=== PATIENT | female | born 1970 | race Caucasian/White ===

== ENCOUNTER → 2017-10-30 | Outpatient (CLI) | payer BC ==
[~2017-10-30] MED LIST: BIOTPOW17 PO; CLC100 PO; CLTP PO; CYCL5TAB28 PO; ERGO1CAP35 PO; FLNCV PO; LVXUNK PO; OXYC10SO
== END | disposition home or self-care (01) ==
LOC: C.RDSM 08:06
PROVIDERS: ATTEND Physical Medicine & Rehabilitation Sports Medicine
DX: M77.12 Lateral epicondylitis, left elbow (principal); M77.02 Medial epicondylitis, left elbow

== ENCOUNTER 2017-12-21 08:24 | Emergency (ER) | payer BC ==
[~2017-12-21] VITALS: Ht 160 cm; Wt 106.0 kg
[2017-12-21 08:26] VITALS: TEMP 36.7; Ht 160 cm; Wt 106.0 kg
[2017-12-21 08:55] VITALS: O2SAT 97
[2017-12-21 09:06] LABS: BASO % 0.1 %; BASO ABS # 0.02 K/uL (0-0.2); EOS % 1.2 %; EOS ABS # 0.17 K/uL (0-0.5); HEMATOCRIT 35.6 % (37-47); HEMOGLOBIN 11.4 g/dL (12.0-16.0); IG# 0.03 K/uL (0.00-0.02); LYMPH % 13.1 %; MEAN CELL VOLUME 86.2 fL (80-100); MEAN CORPUSCULAR HEMOGLOBIN 27.6 pg (25-34); MEAN PLATELET VOLUME 9.5 fL (7.4-10.4); MONO % 9.6 %; MONO ABS # 1.32 K/uL (0.11-0.59); NEUT % 75.8 %; NEUT ABS # 10.35 K/uL (1.4-6.5); PLATELET COUNT 371 K/uL (130-400); RED CELL DISTRIBUTION WIDTH CV 15.2 % (11.5-14.5); RED CELL DISTRIBUTION WIDTH SD 47.9 fL (36.4-46.3); WHITE BLOOD COUNT 13.69 K/uL (4.8-10.8)
[2017-12-21 09:11] LABS: PTT PATIENT 26.8 SECONDS (21.0-31.0)
[2017-12-21] MEDS ORDERED: SODIUM CHLORIDE 0.9% 1000ML 1,000 ML IV STA (09:15)
[2017-12-21] MEDS ORDERED: PEDICHW50 PO (09:27)
[2017-12-21] MEDS ORDERED: FERR142T PO (09:27)
[2017-12-21] MEDS ORDERED: ZINC1CAP PO (09:27)
[2017-12-21] MEDS ORDERED: LEVO175T PO (09:27)
[2017-12-21] MEDS ORDERED: ERGO500037 PO (09:27)
--- NOTE | 2017-12-21 09:28 | EMERGENCY ROOM VISIT NOTE ---
History First contact with patient: 08:34 Chief Complaint: CHEST PAIN Stated Complaint: CHEST PAIN, LIGHT HEADED, TROUBLE BREATHING Nursing Triage Summary: upper mid chest pain started last [id number] History of Present Illness The patient is a 47 year old female who presents to the Emergency Room with complaints of chest pain. The patient states she is also experiencing some mild lightheadedness associated with her pain. She denies any dyspnea, but states she was really focusing on her breathing last night, because she was concerned she might be short of breath. The symptoms began at rest, and do not increase with exertion. She states she began experiencing the chest discomfort at approximately 2300 last night, about 2 hours after eating nachos for dinner. She states the symptoms remind her of reflux she experienced after eating long [employer] while with her daughter several years ago. She does not have a history of reflux, GERD, gastritis, or associated symptoms. She denies any abdominal pain. She describes the sensation in her chest as a pressure/burning and states it is in the center of her chest. She rates it 7/10 last night and a 3/10 today. It does worsen with palpation. She denies family or personal history of heart attacks, hypertension, hyperlipidemia. She does report intermittent, occasional leg swelling for the past several months, but denies anything recent associated with this chest discomfort. She denies any overly stressful events in her life or at work right now. She denies history of anxiety. She states she was lifting heavy chairs and tables yesterday out of a box truck, several hours prior to onset of the pain. She denies recent travel. She denies history of blood clots. No palpitations, nausea, vomiting, diarrhea, recent illness, cough, constipation, URI symptoms, congestion, or other concerning symptoms. Review of Systems A complete 10 point review of systems was reviewed with the patient with pertinent positives and negatives as per history of present illness. All else were negative. Past Medical/Surgical History Hypothyroidism Family History CVA in paternal grandmother in her 80s. Valvular heart disease in her mother. Social History Smoking Status: Never Smoker Smokeless Tobacco Use: No Alcohol Use: none Drug Use: none Marital Status: Housing Status: lives with family Occupation Status: employed Current/Historical Medications Scheduled Ergocalciferol (Vitamin D 33875 Unit), 50,000 UNIT PO M,T,W,T,F Ferrous Sulfate (Slow Fe), Unknown Dose PO DAILY Levothyroxine Sodium (Synthroid), 175 MCG PO QAM Pediatric Multiple Vitamin W/ (Flintstones Chewable), 1 TAB PO QAM Zinc Sulfate (Zinc Sulfate), Unknown Dose PO DAILY Physical Exam Vital Signs Date Time Temp Pulse Resp B/P (MAP) Pulse Ox O2 Delivery O2 Flow Rate FiO2 12/21/17 09:50 64 16 172/64 99 Room Air 12/21/17 08:55 69 16 143/83 97 Room Air 12/21/17 08:55 97 Room Air 12/21/17 08:43 70 12/21/17 08:26 36.7 81 18 147/85 99 Room Air Physical Exam VITALS: Vitals are noted on the nurse's note and reviewed by myself. Vital signs stable. GENERAL: This is a 47-year-old white female, in no acute distress, nondiaphoretic, well-developed well-nourished. SKIN: The skin was without rashes, erythema, edema, or bruising. There is no tenting of the skin. Capillary reflex less than 2 seconds. HEAD: Normocephalic atraumatic. EARS: External auditory canals clear, tympanic membranes pearly charles without erythema or effusion bilaterally. EYES: Pupils equal round and reactive to light and accommodation. Conjunctivae without injection, sclerae without icterus. Extraocular movements intact. NOSE: Patent, turbinates without inflammation or discharge. No sinus tenderness. MOUTH: Mucous membranes moist. Tonsils are not enlarged. Pharynx without erythema or exudate. Uvula midline. Airway patent. Tongue does not deviate. NECK: Supple without nuchal rigidity. No lymphadenopathy. No thyromegaly. Cervical spine is nontender. No JVD. HEART: Regular rate and rhythm without murmurs gallops or rubs. LUNGS: Clear to auscultation bilaterally without wheezes, rales or rhonchi. No dullness to percussion. No retractions or accessory muscle use. ABDOMEN: Positive bowel sounds x 4. Normal tympanic percussion. Soft, nontender, without masses or organomegaly. Harris sign negative. No guarding or rebound tenderness. MUSCULOSKELETAL: No muscle atrophy, erythema, or edema noted. Full range of motion without joint tenderness in all extremities. Tenderness to palpation over the sternum and anterior ribs bilaterally. No lateral or posterior chest wall tenderness. No tenderness to palpation except as noted. Normal gait. Strength 5/5 throughout. NEURO: Patient was alert and oriented to person place and time. Normal sensation to light and sharp touch. Deep tendon reflexes 2+ throughout. No focal neurological deficits. Medical Decision & Procedures ER Provider Diagnostic Interpretation: CHEST 2 VIEWS ROUTINE CLINICAL HISTORY: Chest pain. Lightheaded. COMPARISON STUDY: Chest radiograph March 28, 2012. FINDINGS: There are cholecystectomy clips. Lung volumes are normal. Lungs are clear. No pneumothorax or pleural effusion is noted. Pulmonary vascularity is normal. Cardiac size is at the upper limits of normal. IMPRESSION: No acute cardiopulmonary findings. Electronically signed by: Frederic Stahl M.D. 12/21/2017 9:44 AM Dictated Date/Time: 12/21/2017 9:44 AM Laboratory Results 12/21/17 08:35 Red Blood Count 4.13, Mean Corpuscular Volume 86.2, Mean Corpuscular Hemoglobin 27.6, Mean Corpuscular Hemoglobin Concent 32.0, Mean Platelet Volume 9.5, Neutrophils (%) (Auto) 75.8, Lymphocytes (%) (Auto) 13.1, Monocytes (%) (Auto) 9.6, Eosinophils (%) (Auto) 1.2, Basophils (%) (Auto) 0.1, Neutrophils # (Auto) 10.35, Lymphocytes # (Auto) 1.80, Monocytes # (Auto) 1.32, Eosinophils # (Auto) 0.17, Basophils # (Auto) 0.02 12/21/17 08:35 Test 12/21/17 08:35 12/21/17 08:47 White Blood Count 13.69 K/uL (4.8-10.8) Red Blood Count 4.13 M/uL (4.2-5.4) Hemoglobin 11.4 g/dL (12.0-16.0) Hematocrit 35.6 % (37-47) Mean Corpuscular Volume 86.2 fL (80-100) Mean Corpuscular Hemoglobin 27.6 pg (25-34) Mean Corpuscular Hemoglobin Concent 32.0 g/dl (32-36) Platelet Count 371 K/uL (130-400) Mean Platelet Volume 9.5 fL (7.4-10.4) Neutrophils (%) (Auto) 75.8 % Lymphocytes (%) (Auto) 13.1 % Monocytes (%) (Auto) 9.6 % Eosinophils (%) (Auto) 1.2 % Basophils (%) (Auto) 0.1 % Neutrophils # (Auto) 10.35 K/uL (1.4-6.5) Lymphocytes # (Auto) 1.80 K/uL (1.2-3.4) Monocytes # (Auto) 1.32 K/uL (0.11-0.59) Eosinophils # (Auto) 0.17 K/uL (0-0.5) Basophils # (Auto) 0.02 K/uL (0-0.2) RDW Standard Deviation 47.9 fL (36.4-46.3) RDW Coefficient of Variation 15.2 % (11.5-14.5) Immature Granulocyte % (Auto) 0.2 % Immature Granulocyte # (Auto) 0.03 K/uL (0.00-0.02) Prothrombin Time 10.2 SECONDS (9.0-12.0) Prothromb Time International Ratio 1.0 (0.9-1.1) Activated Partial Thromboplast Time 26.8 SECONDS (21.0-31.0) Partial Thromboplastin Ratio 1.0 Anion Gap 6.0 mmol/L (3-11) Est Creatinine Clear Calc Drug Dose 106.4 ml/min Estimated GFR () 107.3 Estimated GFR (Non- 92.6 BUN/Creatinine Ratio 12.3 (10-20) Calcium Level 8.8 mg/dl (8.5-10.1) Total Bilirubin 0.4 mg/dl (0.2-1) Aspartate Amino Transf (AST/SGOT) 48 U/L (15-37) Alanine Aminotransferase (ALT/SGPT) 47 U/L (12-78) Alkaline Phosphatase 94 U/L (45-117) Creatine Kinase MB 1.1 ng/ml (0.5-3.6) Troponin I < 0.015 ng/ml (0-0.045) Total Protein 7.4 gm/dl (6.4-8.2) Albumin 3.2 gm/dl (3.4-5.0) Globulin 4.2 gm/dl (2.5-4.0) Albumin/Globulin Ratio 0.8 (0.9-2) Lipase 173 U/L (73-393) Thyroid Stimulating Hormone (TSH) 4.000 uIu/ml (0.300-4.500) Creatine Kinase MB Ratio (0-3.0) Medications Administered Medications (Trade) Dose Ordered Sig/Denys Route Start Time Stop Time Status Last Admin Dose Admin Sodium Chloride 1,000 ml @ 999 mls/hr Q1H1M STAT IV 12/21/17 09:15 12/21/17 10:15 DC 12/21/17 09:45 999 MLS/HR ECG Per My Interpretation Indication: chest pain Rate (beats per minute): 66 Rhythm: normal sinus Findings: no acute ischemic change, no ectopy Comparison ECG Date: 03/28/2012 Change: no significant change ED Course Patient seen and evaluated as above. IV access obtained, labs drawn. EKG performed. This was interpreted by myself as above The patient was given 1L NSS. Reviewed all imaging studies and labs. I did obtain previous labs to verify the chronic anemia. Her most recent hemoglobin was in 2015 and was 11.7. Prior to that, it was in 2014 and was 11.1. I discussed the case with Dr. Shaver. We were in agreement with the assessment and plan. I discussed the findings with the patient at bedside. I did offer her pain medication and the patient declines. Discharge instructions reviewed, patient was discharged home in good condition. Medical Decision This is a 47-year-old female patient presents the emergency department today, ambulatory, complaining of chest pain which has been ongoing for approximately 9 hours. The patient does not have any cardiac history personally or in her family. Her heart score was 2, due to the patient's age and obesity. EKG was reviewed by myself and did not show any obvious ischemic changes. Her troponin was negative at this time. Given that her symptoms have been ongoing for approximately 9 hours, if this were of cardiac etiology, I would suspect her troponin to be elevated. The patient's CBC did show some mild anemia. This is consistent with the patient's previous labs. Her white blood cell count was slightly elevated at 13,000. I suspect this is related to some stress and anxiety surrounding the patient's symptoms. Her coagulation studies were normal. The patient's renal and hepatic function were without significant abnormalities. Her TSH was 4. Lipase was 173. Her electrolytes were without significant abnormality. Chest x-ray was not concerning. The patient's pain began several hours after lifting heavy chairs and tables. I suspect her symptoms are muscular, or possibly GI, as she ate nachos for dinner last night and her symptoms remind her of reflux she experienced while . Patient was encouraged to follow-up outpatient with her PCP, but I did provide her with pain management options. She was given very strict return precautions. All questions answered to the patient's satisfaction. Etiologies such as cardiac ischemia, aortic dissection, pulmonary embolism, pneumonia, pneumothorax, musculoskeletal, infections, gastrointestinal, as well as others were entertained. The chart was completed utilizing [employer] Speech voice recognition software. Grammatical errors, random word insertions, pronoun errors, and incomplete sentences are an occasional consequence of this system due to software limitations, ambient noise, and hardware issues. Any formal questions or concerns about the content, text, or information contained within the body of this dictation should be directly addressed to the provider for clarification. Medication Reconcilliation Current Medication List: was personally reviewed by me Blood Pressure Screening Patient's blood pressure: Elevated blood pressure Blood pressure disposition: Elevated BP felt to be situational Impression Primary Impression: Non-cardiac chest pain Departure Information Dispostion Home / Self-Care Condition GOOD Referrals Jayde Abbasi M.D. (PCP) Patient Instructions ED Chest Pain NonCardiac, [facility] Additional Instructions You were seen in the ED today for chest pain. Labs, imaging, and EKG were not concerning for cardiac etiology. Ibuprofen(Motrin, Advil) may be used for fever or pain. Use 600mg every six hours as needed. Take with food. Avoid using more than 2400mg in a 24 hour period. Do not use 2400mg per day for more than three consecutive days without physician direction. Prolonged inappropriate use can lead to stomach upset or ulcers. (AND/OR) Acetaminophen(Tylenol) may be used for fever or pain. Use 1000mg every six hours as needed. Avoid using more than 3000mg in a 24 hour period. I suspect your dizziness/lightheadedness is related to some mild dehydration and position changes. Please stay well-hydrated. Please follow-up with your PCP within 1 week for re-evaluation and further workup if necessary. Return to the ED for worsening chest pain, dyspnea, headache, dizziness, syncope , lightheadedness, or other concerning symptoms.
[2017-12-21 09:43] LABS: ALBUMIN 3.2 gm/dl (3.4-5.0); ALKALINE PHOSPHATASE 94 U/L (45-117); ALT/SGPT 47 U/L (12-78); AST/SGOT 48 U/L (15-37); BLOOD UREA NITROGEN 9 mg/dl (7-18); CALCIUM 8.8 mg/dl (8.5-10.1); CARBON DIOXIDE 25 mmol/L (21-32); CKMB 1.1 ng/ml (0.5-3.6); CREATININE 0.77 mg/dl (0.60-1.20); GLUCOSE 115 mg/dl (70-99); LIPASE 173 U/L (73-393); POTASSIUM 3.9 mmol/L (3.5-5.1); SODIUM 139 mmol/L (136-145); TOTAL PROTEIN 7.4 gm/dl (6.4-8.2)
--- NOTE | 2017-12-21 09:46 | DIAGNOSTIC IMAGING REPORT ---
CHEST 2 VIEWS ROUTINE CLINICAL HISTORY: Chest pain. Lightheaded. COMPARISON STUDY: Chest radiograph March 28, 2012. FINDINGS: There are cholecystectomy clips. Lung volumes are normal. Lungs are clear. No pneumothorax or pleural effusion is noted. Pulmonary vascularity is normal. Cardiac size is at the upper limits of normal. IMPRESSION: No acute cardiopulmonary findings. Electronically signed by: Frederic Stahl M.D. 12/21/2017 9:44 AM Dictated Date/Time: 12/21/2017 9:44 AM
[2017-12-21 11:14] VITALS: BP 133/69; PULSE 78; O2SAT 99
== END 2017-12-21 11:00 | disposition home or self-care (01) ==
LOC: C.EDB 08:25
DX: R07.89 Other chest pain (principal); E03.9 Hypothyroidism, unspecified; E66.9 Obesity, unspecified; Z86.73 Personal history of transient ischemic attack (TIA), and cerebral infarction without residual deficits; Z82.49 Family history of ischemic heart disease and other diseases of the circulatory system; Z79.899 Other long term (current) drug therapy